=== PATIENT | male | born 2005 | race Caucasian/White ===

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

== ENCOUNTER 2025-03-21 09:57 | Outpatient (REF) | payer BC, SELFPAY ==
[2025-03-21 20:02] LABS: Abs Immature Grans 0.01 10^3/uL (0.0-0.06); HCT 45.5 % (40.0-50.0); HGB 15.7 g/dL (13.5-17.5); Immature Grans % 0.2 %; MCH 29.0 pg (27.0-33.0); MCHC 34.5 % (32.0-36.0); MCV 84 fL (80-95); MPV 10.4 fL (8.0-11.0); Platelet Count 254 10^3/uL (130-400); RBC 5.41 10^6/uL (4.36-5.78); RDW 11.8 % (11.8-14.1); RDW-SD 35.6 fL; WBC 4.91 10^3/uL (4.4-10.8)
[2025-03-21 20:20] LABS: ALT 23 U/L (16-63); AST 16 U/L (15-37); Albumin 4.6 g/dL (3.4-5.0); Alkaline Phosphatase 64 U/L (46-116); Anion Gap 8.3 mmol/L (3-11); BUN 14 mg/dL (7-18); Bilirubin, Total 0.6 mg/dL (0.2-1.0); CO2 30.7 mmol/L (21.0-32.0); Calcium 9.3 mg/dL (8.5-10.1); Calculated LDL 112 mg/dL (<100); Chloride 102 mmol/L (98-107); Cholesterol 180 mg/dL (<200); Estimated GFR 110.50 (mL/min/1.73m2); Glucose 93 mg/dL (74-106); HDL Cholesterol 47 mg/dL (>or=40); Potassium 4.0 mmol/L (3.5-5.1); Sodium 141 mmol/L (136-145); TSH (W/Ref FT4) 2.47 uIU/mL (0.36-3.74); Total Protein 7.8 g/dL (6.4-8.2); Triglyceride 109 mg/dL (<150)
[2025-03-22 18:52] LABS: HIV-1/2 Ag & Ab Screen Negative (Negative)
[2025-03-22 18:55] LABS: Hepatitis C Ab w Rflx HCV PCR Negative (Negative)
== END 2025-03-21 09:58 | disposition home or self-care (01) ==
LOC: NCHCN 09:57
PROVIDERS: PCP Internal Medicine; Visit Provider Physician Assistant
DX: R42 Dizziness and giddiness (principal); E78.5 Hyperlipidemia, unspecified; Z11.59 Encounter for screening for other viral diseases; Z11.4 Encounter for screening for human immunodeficiency virus [HIV]
CPT/HCPCS: 80053; 80061; 86803; 87389; 84443; 85025